=== PATIENT | female | born 1960 | race Caucasian/White ===

== ENCOUNTER 2020-08-04 11:41 | Day surgery (SDC) | payer BC ==
[~2020-08-04] VITALS: Ht 165.1 cm; Wt 106.4 kg
[~2020-08-04 11:41] MED LIST: Adipex-P37.5 MG PO; ESTRADIOL0.5 MG PO; MICROZIDE12.5 M2 PO; MULTI-VITAMIN1 EAC2 PO; PROAIR DIGIHAL90 MCG; Trazodone HCl300 MG PO; VENL37.5ER PO; ZOLP12.5 PO
[2020-08-04] MEDS ORDERED: PSEUDOEPHEDRINE30 M2 PO (12:12)
--- NOTE | 2020-08-04 13:18 | NUR ---
08/04/20 1318 Satinder Argueta 10 MLS OF BUPIVACAINE 0.5 % MIXED WITH 10 MLS OF LIDOCAINE 1% 1:1. TOTAL OF 2O MLS INJECTED BY DR. ELKINS AT [facility]. ADDITIONAL 10 MLS OF LIDOCAINE 1% INJECTED AT [facility] BY DR. ELKINS.
== END 2020-08-04 14:25 | disposition home or self-care (01) ==
LOC: ORSCSDS 11:41
PROVIDERS: Surgery
PROC: 0JB70ZZ Excision of Back Subcutaneous Tissue and Fascia, Open Approach (ICD-10-PCS; principal; 2020-08-04 13:00)
DX: D17.1 Benign lipomatous neoplasm of skin and subcutaneous tissue of trunk (principal); I10 Essential (primary) hypertension; E66.01 Morbid (severe) obesity due to excess calories; Z68.39 Body mass index [BMI] 39.0-39.9, adult; Z79.899 Other long term (current) drug therapy
CPT/HCPCS: 88304; J0690; J2250; J2704; J3010; J7120